=== PATIENT | female | born 1980 | race Asian ===

== ENCOUNTER 2018-02-13 10:10 | Inpatient (IN) | payer OTHER ==
[2018-02-13 12:36] LABS: ABS Basophils 0 10^3/ul (0-0.2); ABS Eosinophils 0.2 10^3/ul (0-0.6); ABS Lymphocytes 1.5 10^3/ul (1.0-4.8); ABS Monocytes 0.6 10^3/ul (0-0.8); ABS Neutrophils 6.2 10^3/ul (1.5-7.7); ABS Nucleated RBC 0 10^3/ul; Eosinophil % 2.2 % (0-6); Hematocrit 37 % (35-47); Hemoglobin 12.8 g/dl (12.0-16.0); Lymphocyte % 17.8 % (25-47); Mean Corpuscular HGB Conc 35 g/dl (31-36); Mean Corpuscular Hemoglobin 35 pg (27-31); Mean Corpuscular Volume 100 fL (80-97); Mean Platelet Volume 8.4 um3 (7.4-10.4); Nucleated Red Blood Cells % 0; Platelet Count 277 10^3/ul (150-450); Red Blood Count 3.68 10^6/ul (4.00-5.40); Red Cell Distribution Width 14 % (10.5-15); White Blood Count 8.6 10^3/ul (3.5-10.8)
[2018-02-13] MEDS ORDERED: Oxytocin in LR* 20 UNITS/1,000 ML BAG IVPB ONE (14:25)
[2018-02-13] MEDS ORDERED: Dibucaine 1% 28.35 GM TUBE PR PRN (14:49)
[2018-02-13] MEDS ORDERED: Ibuprofen TAB* 600 MG PO PRN (14:49)
[2018-02-13] MEDS ORDERED: Witch Hazel PAD* JAR TOPICAL PRN (14:49)
[2018-02-13] MEDS ORDERED: Acetaminophen TAB* 325 MG PO PRN (14:49)
[2018-02-13] MEDS ORDERED: Oxytocin in LR* 20 UNITS/1,000 ML BAG IVPB SCH (15:00)
--- NOTE | 2018-02-13 15:05 | HP ---
General Information - Reason for Visit Pt presents with frequent ctx, about every 4-5 min, started this AM. Some light bloody show. Cx 4/80% in office yesterday. - General Information Maternal Age: 37 Grav: 2 Para: 1 SAB: 0 IEA: 0 Estimated Due Date: 02/18/18 Determined By: LMP Gestational Age in Weeks/Days: 39+2 wks Maternal Blood Type and Rh: O Positive - Results this Serology/RPR Result: Non-Reactive Rubella Result: Immune HBsAg Result: Negative HIV Result: Negative GBS Culture Result: Negative Past Medical History Delivery History: See Records Delivery History Comment: prior at term but observed with short cervix Pertinent Past Medical History: Non-Contributory Pertinent Past Surgical History: See Records Past Surgical History Comment: CKC, breast abscess - Antepartal Records Antepartal Records: Reviewed, Complicated by: - concern for IUGR, about 15th percentile Review of Systems Constitutional: Uncomfortable CV Complaint: No Respiratory: Shortness of Breath: No Gastrointestinal: No Nausea/Vomiting, Normal Bowel Movement Genitourinary: No Dysuria, No Leaking Fluid Musculoskeletal: Contractions Neurological: No Headache Movement: Normal Exam Allergies/Adverse Reactions: Allergies No Known Allergies Allergy (Verified 02/13/18 10:54) vs normal, afebrile Lab Values - Entire Visit: Laboratory Tests 02/13/18 02/13/18 12:06 12:06 WBC 8.6 RBC 3.68 L Hgb 12.8 Hct 37 MCV 100 H MCH 35 H MCHC 35 RDW 14 Plt Count 277 MPV 8.4 Neut % (Auto) 73.1 Lymph % (Auto) 17.8 L Wolfe % (Auto) 6.6 Eos % (Auto) 2.2 Baso % (Auto) 0.3 Absolute Neuts (auto) 6.2 Absolute Lymphs (auto) 1.5 Absolute Monos (auto) 0.6 Absolute Eos (auto) 0.2 Absolute Basos (auto) 0 Absolute Nucleated RBC 0 Nucleated RBC % 0 Blood Type O Positive Antibody Screen Negative - Measurements Height: 5 ft 2 in Weight: 141 lb Weight in lbs: [phone] Body Mass Index (BMI): 25.7 Pre- Weight: 127 lb Weight Gained This : 14 lbs and 0 ozs - Exam Breast: Breast Exam Deferred Heart: Normal Rhythm/Heart Sounds HEENT: No Significant Findings Lungs: Clear Bilaterally Rectal: Rectal Exam Deferred - Abdominal Exam Abdomen Exam: Non-Tender - Ultrasound/Biophysical Profile Ultrasound Status: Not Done Targeted Exam Findings Cervical Exam: 4cm Effacement: Complete Station: 0 Presenting Part: Vertex Membrane Status: Bulging Bleeding/Discharge: Bloody Show EFM Findings - External Monitor Findings Baseline Heart Rate: 140 External Monitor Findings: Accelerations Present, No Pattern of Variable or Late Decelerations, Variability Moderate Contractions: Regular, Moderate, Strong Contraction Frequency: Q4 min Assessment/Plan - Assessment 39+2 wks, SGA but more than IUGR, appears to be in active labor now. Very reassuring FHT. - Plan Plan: Admit - Anticipate Vaginal Delivery Plan Comment: Pt declines epidural - Date/Time of Admission Date of Admission: 02/13/18 Time of Admission: 11:00
--- NOTE | 2018-02-13 15:53 | PROCNOTE ---
[facility] OB: Delivery Note - Delivery A Date of : 02/13/18 Time of : 14:21 Weight at : 5 lb 15 oz Score 1 Minute: 9 Score 5 Minutes: 9 Gestational Age in Weeks and Days at Delivery: 39 Weeks and 2 Days Delivery Method: Spontaneous Vaginal Labor: Spontaneous Did Patient attempt ?: N/A, No Previous Amniotic Fluid: Clear Anesthesia/Analgesia: None Delivered By: Jorge Luis Parekh - Nursery Level of Nursery: Regular/Bedside - Perineum Perineal Injury: 2nd Degree Perineal Repair: By Delivering Practioner - Small 2nd degree at site of previous episiotomy. Repaired with 3-0 [employer] Rapide. - Events Delivery Events of Note: None Apply Delivery Events of Note Comment: Pt presented in early active labor. Progressed quickly to fully dilated and had SROM, clear fluid. Pt then pushed for only about 10 min to deliver the head in a controlled fashion. Anterior compound arm present. Body followed quickly. Infant vigorous and cried quickly.
[2018-02-13] MEDS ORDERED: Simethicone TAB* 80 MG TAB.CHEW PO SCH (17:30)
[2018-02-13] MEDS: Docusate CAP* 100 MG PO SCH (20:50)
[2018-02-14 07:03] LABS: ABS Basophils 0 10^3/ul (0-0.2); ABS Eosinophils 0.1 10^3/ul (0-0.6); ABS Lymphocytes 1.8 10^3/ul (1.0-4.8); ABS Monocytes 0.7 10^3/ul (0-0.8); ABS Neutrophils 8.3 10^3/ul (1.5-7.7); ABS Nucleated RBC 0 10^3/ul; Eosinophil % 1.2 % (0-6); Hematocrit 32 % (35-47); Hemoglobin 11.2 g/dl (12.0-16.0); Lymphocyte % 16.6 % (25-47); Mean Corpuscular HGB Conc 35 g/dl (31-36); Mean Corpuscular Hemoglobin 35 pg (27-31); Mean Corpuscular Volume 100 fL (80-97); Mean Platelet Volume 8.4 um3 (7.4-10.4); Nucleated Red Blood Cells % 0; Platelet Count 248 10^3/ul (150-450); Red Blood Count 3.21 10^6/ul (4.00-5.40); Red Cell Distribution Width 14 % (10.5-15); White Blood Count 10.9 10^3/ul (3.5-10.8)
[2018-02-14] MEDS: Docusate CAP* 100 MG PO SCH ×3 (08:12→21:13)
[2018-02-14] MEDS ORDERED: Ferrous Gluconate TAB* 324 MG TAB PO SCH (09:00)
[2018-02-15 07:45] VITALS: BP 123/73
[2018-02-15] MEDS: Docusate CAP* 100 MG PO SCH (09:09)
--- NOTE | 2018-02-15 12:50 | PTEDU ---
Patient Name: CAIN FERNANDES CAIN FERNANDES selected video: Never Ever Shake a Baby to view on 02/15/2018 at 12:50:26 PM from [facility] [id number]
== END 2018-02-15 12:55 | disposition home or self-care (01) | DRG 775 ==
LOC: MCHOBOUT 10:10 → MCHOB 11:12
PROVIDERS: ADMIT Obstetrics & Gynecology; ATTEND Obstetrics & Gynecology
PROC: 10E0XZZ Delivery of Products of Conception, External Approach (ICD-10-PCS; principal; 2018-02-13)
PROC: 0KQM0ZZ Repair Perineum Muscle, Open Approach (ICD-10-PCS; 2018-02-13)
PROC: 4A1HXCZ Monitoring of Products of Conception, Cardiac Rate, External Approach (ICD-10-PCS; 2018-02-13)
DX: O36.5930 Maternal care for other known or suspected poor fetal growth, third trimester, not applicable or unspecified (principal); Z37.0 Single live birth; Z3A.39 39 weeks gestation of pregnancy; O70.1 Second degree perineal laceration during delivery; O32.6XX0 Maternal care for compound presentation, not applicable or unspecified
CPT/HCPCS: 36415; 85025; 86850; 86900; 86901; A9270-GY